=== PATIENT | female | born 2000 | race Caucasian/White ===

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

== ENCOUNTER 2020-04-27 12:21 | Emergency (ER) | payer BC, OTHER ==
[2020-04-27] MEDS ORDERED: KETOROLAC 15 MG/ML 1 ML VIAL IM STA (13:36)
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
[2020-04-27 14:31] VITALS: BP 124/71; PULSE 72; RESP 16; TEMP 98.1
== END 2020-04-27 14:31 | disposition home or self-care (01) ==
LOC: EC 12:21
DX: S00.83XA Contusion of other part of head, initial encounter (principal); S90.31XA Contusion of right foot, initial encounter; S00.531A Contusion of lip, initial encounter; S00.33XA Contusion of nose, initial encounter; Z79.3 Long term (current) use of hormonal contraceptives; V49.9XXA Car occupant (driver) (passenger) injured in unspecified traffic accident, initial encounter; Y93.39 Activity, other involving climbing, rappelling and jumping off; Y92.410 Unspecified street and highway as the place of occurrence of the external cause
CPT/HCPCS: 72125; 70486; 70450; 99283; 96372; J1885